=== PATIENT | female | born 1970 | race Caucasian/White ===

== ENCOUNTER 2019-02-24 16:58 | Observation (INO) ==
[2019-02-24] MEDS ORDERED: ACETAMINOPHEN 500 MG TABLET PO STA (17:19)
[2019-02-24] MEDS ORDERED: cefTRIAXone 1,000 MG in SODIUM CHLORIDE 0.9% 100 ML IV STA (17:19)
[2019-02-24] MEDS ORDERED: SODIUM CHLORIDE 0.9% 1,000 ML IV STA (17:19)
[2019-02-24] MEDS ORDERED: ONDANSETRON 4 MG/2 ML VIAL IV STA (17:19)
[2019-02-24 18:05] LABS: Basophils % 0.6 % (0.0-0.8); Eosinophils # 0.1 10*3/uL (0.0-0.87); Eosinophils % 1.6 % (0.00-10.9); Hematocrit 39.5 VOL% (35.7-47.0); Hemoglobin 12.6 GM/DL (12.0-16.0); Immature Granulocytes % 0.5 %; Immature Granulocytes Absolute 0.03 #; Lymphocytes # 1.9 10*3/uL (1.4-4.0); Lymphocytes % 29.9 % (21.3-54.2); Mean Corpuscular HGB Conc 31.9 GM/DL (32-36); Mean Corpuscular Volume 88.8 FL (87-102); Mean Platelet Volume 9.9 FL (9.6-12.0); Neutrophils % 57.4 % (38.7-73.9); Platelet Count 256 T/CUMM (130-400); Red Blood Count 4.45 MC/CUMM (3.8-5.5); Red Cell Distribution Width 13.1 % (9.3-17.3); White Blood Count 6.4 T/CUMM (4-12)
[2019-02-24 18:10] LABS: Apearance,Urine CLEAR (Clear); Bilirubin,Urine Negative (Negative); Blood, Urine Negative (Negative); Glucose,Urine (UA) Negative (Negative); Ketones,Urine Negative (Negative); Mucus,Urine Occasional /LPF (Occasional); Nitrite,Urine Negative (Negative); Protein,Urine Negative; RBC,Urine 3 /HPF (0-4); Squamous Epithelial Cell,Urine Occasional /HPF (0-10); Urine Color Yellow (Yellow); Urine Specific Gravity 1.013 (1.001-1.035); WBC,Urine 215 /HPF (0-6)
[2019-02-24 18:31] LABS: Albumin 3.9 G/DL (3.4-5.0); Bilirubin,Total 0.9 MG/DL (0.2-1.0); Calcium 8.6 MG/DL (8.5-10.1); Osmolality,Calculated 276.5 MOS/KG (273-304); Total Protein 8.2 G/DL (6.4-8.3)
[2019-02-24] MEDS ORDERED: ACETAMINOPHEN 325 MG TABLET PO PRN (20:13)
[2019-02-24] MEDS ORDERED: ENOXAPARIN 40 MG/0.4 ML SYRINGE SUBCUT SCH (21:00)
[2019-02-24] MEDS ORDERED: PIPERACILLIN/TAZOBACTAM 3,375 MG VIAL IV ONE (22:19)
[2019-02-24] MEDS: SODIUM CHLORIDE 0.9% 1,000 ML IV SCH (23:24)
[2019-02-24] MEDS: ACETAMINOPHEN 325 MG TABLET PO PRN (23:25)
[2019-02-24] MEDS: PIPERACILLIN/TAZOBACTAM 3,375 MG in SODIUM CHLORIDE 0.9% 100 ML IV SCH (23:25)
[2019-02-25 05:36] LABS: Calcium 8.3 MG/DL (8.5-10.1)
[2019-02-25] MEDS: ACETAMINOPHEN 325 MG TABLET PO PRN (05:36)
[2019-02-25 05:37] LABS: Basophils % 0.5 % (0.0-0.8); Eosinophils # 0.1 10*3/uL (0.0-0.87); Eosinophils % 1.8 % (0.00-10.9); Hematocrit 37.3 VOL% (35.7-47.0); Hemoglobin 11.8 GM/DL (12.0-16.0); Immature Granulocytes % 0.4 %; Immature Granulocytes Absolute 0.02 #; Lymphocytes # 1.9 10*3/uL (1.4-4.0); Mean Corpuscular HGB Conc 31.6 GM/DL (32-36); Mean Corpuscular Volume 89.7 FL (87-102); Mean Platelet Volume 10.5 FL (9.6-12.0); Monocytes % 7.8 % (1.7-12.7); Neutrophils % 54.5 % (38.7-73.9); Platelet Count 242 T/CUMM (130-400); Red Blood Count 4.16 MC/CUMM (3.8-5.5); Red Cell Distribution Width 13.2 % (9.3-17.3); White Blood Count 5.5 T/CUMM (4-12)
[2019-02-25] MEDS: ONDANSETRON 4 MG/2 ML VIAL IV PRN ×2 (05:37→11:55)
[2019-02-25] MEDS: PIPERACILLIN/TAZOBACTAM 3,375 MG in SODIUM CHLORIDE 0.9% 100 ML IV SCH (09:15)
[2019-02-25] MEDS: PANTOPRAZOLE 40 MG TABLET PO SCH (09:15)
[2019-02-25] MEDS: SODIUM CHLORIDE 0.9% 1,000 ML IV SCH ×2 (10:37→17:20)
[2019-02-25] MEDS: BUTALBITAL/ACETAMIN/CAFFEINE 50-325-40 MG TABLET PO PRN ×3 (11:03→23:55)
[2019-02-25] MEDS ORDERED: LEVOFLOXACIN INJ 500 MG in PREMIX 1 EACH IV SCH (12:00)
[2019-02-25] MEDS ORDERED: cefTRIAXone 1,000 MG VIAL IM SCH (20:30)
[2019-02-26] MEDS: SODIUM CHLORIDE 0.9% 1,000 ML IV SCH ×2 (03:20→10:37)
[2019-02-26 07:55] VITALS: BP 113/65
[2019-02-26] MEDS: PANTOPRAZOLE 40 MG TABLET PO SCH (09:54)
== END 2019-02-26 10:20 | disposition home or self-care (01) ==
LOC: N.ED 16:58 → N.EDINP 16:58 → N.3E 02-25 00:24
PROVIDERS: ADMIT Internal Medicine; ATTEND Internal Medicine